=== PATIENT | female | born 1935 | race Caucasian/White ===

== ENCOUNTER → 2017-06-25 | Outpatient (CLI) | payer MEDICARE ==
[~2017-06-25] MED LIST: CATHETER FLUSH 10 ML SYR IV PRN; REGADENOSON 0.4 MG/5 ML SYR (LEXISCAN) IV ONE
[2017-06-25 09:38] VITALS: BP 205/113
--- NOTE | 2017-06-27 14:18 | STRESS TEST ---
DATE OF SERVICE: 06/25/2017 RESTING AND POST REGADENOSON TECHNETIUM-99M TETROFOSMIN SPECT CT IMAGING ORDERING PHYSICIAN: Julian Suarez MD, SIMAEL, FACP, FACC PRIMARY PHYSICIAN: Dr. Knott. CLINICAL DIAGNOSIS: Shortness of breath. Baseline images were carried out after injection of 10.85 mCi of technetium-99m tetrofosmin. This was followed by 0.4 mg regadenoson and 29.8 mCi technetium-99m tetrofosmin for stress imaging. The electrocardiogram showed atrial fibrillation throughout the study. A few isolated premature ventricular contractions were seen during the study. The electrocardiogram did not change significantly with the regadenoson infusion. The patient tolerated the procedure well. Review of images at rest and following stress does not indicate any significant perfusion defects consistent with significant myocardial ischemia or infarction. Gated images show well preserved global left ventricular systolic function without distinct regional wall motion abnormality. Left ventricular ejection fraction is calculated to be 48%. Left ventricular end diastolic volume is 69 mL. TID is absent (0.98.) CONCLUSIONS: 1. No evidence of significant myocardial ischemia or infarction on this study. 2. No distinct regional wall motion abnormality. 3. Well preserved global systolic function with a calculated ejection fraction of 48% (subjectively somewhat higher than that.) Job ID: [id number] DocumentID: [id number] Dictated Date: 06/27/2017 10:52:16 [employer] Operator Date: 06/27/2017 12:13:38 Dictated By: JULIAN SUAREZ MD, ISMAEL, PATIENCEP, FACC,
== END ==
LOC: CARD 08:08
PROVIDERS: ATTEND Internal Medicine Cardiovascular Disease
DX: I48.2 Chronic atrial fibrillation (principal); I10 Essential (primary) hypertension; E78.4 Other hyperlipidemia; R06.02 Shortness of breath
CPT/HCPCS: 78452; 93017

== ENCOUNTER → 2017-07-12 | Outpatient (CLI) | payer MEDICARE | LOC: CARD 09:54 | PROVIDERS: ATTEND Internal Medicine Cardiovascular Disease | DX: I48.2 Chronic atrial fibrillation (principal); I10 Essential (primary) hypertension; E78.4 Other hyperlipidemia; R06.02 Shortness of breath | CPT/HCPCS: 93306 ==

== ENCOUNTER → 2020-11-21 | Outpatient (CLI) | payer OTHER, MEDICARE ==
[2020-11-21 14:18] LABS: ABSOLUTE RETIC # 47 10e9/uL (24-90); BASOPHILS # (AUTO) 0.1 10^3/uL (0.0-0.1); BASOPHILS % (AUTO) 0 % (0-10); EOSINOPHILS % (AUTO) 0 % (0-10); HEMATOCRIT 36 % (35-52); HEMOGLOBIN 11.4 g/dL (11.5-16.0); LYMPHOCYTES # (AUTO) 1.1 10^3/uL (1.0-4.0); LYMPHOCYTES % (AUTO) 7 % (12-44); MEAN CORPUSCULAR HEMOGLOBIN 29 pg (25-34); MEAN CORPUSCULAR HGB CONC 32 g/dL (32-36); MEAN CORPUSCULAR VOLUME 91 fL (80-99); MEAN PLATELET VOLUME 12.2 fL (9.0-12.2); MONOCYTES # (AUTO) 0.6 10^3/uL (0.0-1.0); MONOCYTES % (AUTO) 4 % (0-12); NEUTROPHILS # (AUTO) 14.2 10^3/uL (1.8-7.8); NEUTROPHILS % (AUTO) 88 % (42-75); PLATELET COUNT 86 10^3/uL (130-400); RETICULOCYTE % 1.18 % (0.50-2.40); WHITE BLOOD COUNT 16.1 10^3/uL (4.3-11.0)
[2020-11-21 14:32] LABS: ANISOCYTOSIS SLIGHT; BAND NEUTROPHILS 12 %; HYPOCHROMASIA SLIGHT; LYMPHOCYTES % (MANUAL) 6 %; MONOCYTES % (MANUAL) 2 %; NEUTROPHILS % (MANUAL) 80 %; POIKILOCYTOSIS SLIGHT
== END ==
LOC: GIR 14:02
PROVIDERS: ATTEND Nurse Practitioner Family
DX: D72.829 Elevated white blood cell count, unspecified (principal)
CPT/HCPCS: 85007; 85027; 85045; 85055

== ENCOUNTER → 2022-01-23 | Outpatient (CLI) | payer MEDICARE, OTHER ==
[2022-01-23 16:46] LABS: ABSOLUTE RETIC # 48 10e9/uL (24-90); RETICULOCYTE % 1.43 % (0.50-2.40)
[2022-01-23 16:57] LABS: ANISOCYTOSIS SLIGHT; ELLIPT/OVALOCYTES SLIGHT; EOSINOPHILS % (MANUAL) 4 %; LYMPHOCYTES % (MANUAL) 32 %; MONOCYTES % (MANUAL) 9 %; NEUTROPHILS % (MANUAL) 55 %
== END ==
LOC: LABNPT 14:23
PROVIDERS: ATTEND Family Medicine
DX: Z01.89 Encounter for other specified special examinations (principal)
CPT/HCPCS: 85007; 85045; 85055

== ENCOUNTER 2022-02-06 10:35 | Outpatient (RCR) | payer MEDICARE ==
[2022-02-06 11:53] LABS: EOSINOPHILS # (AUTO) 0.1 10^3/uL (0.0-0.3); MEAN CORPUSCULAR HEMOGLOBIN 29 pg (25-34)
[2022-02-06 11:55] LABS: ABSOLUTE RETIC # 43 10e9/uL (24-90); BASOPHILS % (AUTO) 1 % (0-10); EOSINOPHILS % (AUTO) 2 % (0-10); HEMATOCRIT 32 % (35-52); HEMOGLOBIN 9.6 g/dL (11.5-16.0); LYMPHOCYTES # (AUTO) 1.4 10^3/uL (1.0-4.0); LYMPHOCYTES % (AUTO) 35 % (12-44); MEAN CORPUSCULAR HGB CONC 30 g/dL (32-36); MEAN CORPUSCULAR VOLUME 98 fL (80-99); MEAN PLATELET VOLUME 10.6 fL (9.0-12.2); MONOCYTES # (AUTO) 0.4 10^3/uL (0.0-1.0); MONOCYTES % (AUTO) 10 % (0-12); NEUTROPHILS # (AUTO) 2.1 10^3/uL (1.8-7.8); NEUTROPHILS % (AUTO) 53 % (42-75); PLATELET COUNT 104 10^3/uL (130-400); WHITE BLOOD COUNT 3.9 10^3/uL (4.3-11.0)
[2022-02-06 12:10] LABS: ALBUMIN 3.5 GM/DL (3.2-4.5); BILIRUBIN,TOTAL 0.6 MG/DL (0.1-1.0); CALCIUM 9.6 MG/DL (8.5-10.1); CREATININE SERUM 0.8 MG/DL (0.60-1.30); POTASSIUM 4.2 MMOL/L (3.6-5.0); TOTAL PROTEIN 6.2 GM/DL (6.4-8.2)
[2022-02-06 21:23] LABS: HEPATITIS C ANTIBODY C Non-Reactive (Non-Reactive)
== END 2022-02-18 | disposition home or self-care (01) ==
LOC: ONC 10:35
PROVIDERS: ATTEND Internal Medicine Hematology & Oncology
DX: D61.818 Other pancytopenia (principal); E78.5 Hyperlipidemia, unspecified; I10 Essential (primary) hypertension; E66.9 Obesity, unspecified
CPT/HCPCS: 80053; 80074; 82607; 82728; 83540; 83550; 83615; 85025; 85045; G0463; 36415; 99204